=== PATIENT | male | born 1970 | race Caucasian/White ===

== ENCOUNTER 2017-04-20 23:12 | Emergency (ER) | payer OTHER ==
[2017-04-20] MEDS ORDERED: Ketorolac INJ* 30 MG/ML 1 ML VIAL IV ONE (23:42)
[2017-04-20] MEDS ORDERED: NS 0.9% 1000 ML* 1,000 ML IV ONE (23:42)
[2017-04-21 00:25] LABS: Urine Bilirubin Negative (Negative); Urine Glucose Negative (Negative); Urine Nitrite Negative (Negative)
[2017-04-21 00:27] LABS: Hematocrit 42 % (42-52); Hemoglobin 13.9 g/dl (14.0-18.0); Mean Corpuscular HGB Conc 33 g/dl (31-36); Mean Corpuscular Hemoglobin 28 pg (27-31); Mean Corpuscular Volume 85 fL (80-94); Mean Platelet Volume 10 um3 (7.4-10.4); Red Blood Count 4.91 10^6/ul (4.0-5.4); Red Cell Distribution Width 14 % (10.5-15); White Blood Count 11.7 10^3/ul (3.5-10.8)
[2017-04-21 00:35] LABS: Albumin 4.2 g/dL (3.2-5.2); BUN/Creatinine Ratio 27.7 (8-20); Calcium 9.3 mg/dL (8.6-10.3); EGFR African American 129.4 (>60); EGFR Non-African American 100.6 (>60); Globulin 2.6 g/dL (2-4); Total Bilirubin 0.4 mg/dL (0.2-1.0); Total Protein 6.8 g/dL (6.4-8.9)
--- NOTE | 2017-04-21 00:52 | ED ---
I, Oh,Sokaleb, scribed for Garry Hendrickson MD on 04/20/17 at 2343 . Headache - HPI Summary HPI Summary: This 46 y/o male presents to ED for gradually worsening HUTCHISON since 3 hours ago. Pain radiates from occipital up to "rest of my head". Positive photophobia and neck pain. Negative fever or n/v. Pt has not taken any meds to control his pain. PMHx includes diverticulitis. Allergies information involving Cipro and Sulfa abx is reviewed and confirmed with pt. - History Of Current Complaint Chief Complaint: EDHeadache Stated Complaint: HEADACHE/NECK SPASMS Time Seen by Provider: 04/20/17 23:37 Hx Obtained From: Patient, Medical Records Onset/Duration: Gradual Onset Timing: Constant Character: Dull Location of Headache: Occipital - radiating up to rest of his skull Aggravating Factor: Bright Lights Allevating Factors: Nothing Associated Signs And Symptoms: Negative - Allergies/Home Medications Allergies/Adverse Reactions: Allergies Allergy/AdvReac Type Severity Reaction Status Date / Time Ciprofloxacin [From Cipro] Allergy Unknown Verified 04/20/17 23:17 Reaction Details Sulfa Antibiotics Allergy Hives Verified 04/20/17 23:17 PMH/Surg Hx/FS Hx/Imm Hx Endocrine/Hematology History: Denies: Hx Diabetes GI History: Reports: Other GI Disorders - diverticulitis Infectious Disease History: No Infectious Disease History: Denies: Traveled Outside the [place] in Last 30 Days - Family History Known Family History: Positive: Hypertension - Social History Alcohol Use: None Hx Substance Use: No Substance Use Type: Reports: None Review of Systems Negative: Fever Negative: Vomiting, Nausea Positive: Other - neck pain Positive: Headache All Other Systems Reviewed And Are Negative: Yes Physical Exam Triage Information Reviewed: Yes Vital Signs On Initial Exam: Initial Vitals Temp Pulse Resp BP Pulse Ox 97.0 F 74 16 169/118 96 04/20/17 23:18 04/20/17 23:18 04/20/17 23:18 04/20/17 23:18 04/20/17 23:18 Vital Signs Reviewed: Yes Appearance: Positive: Well-Appearing, Pain Distress - mild discomfort Skin: Positive: Warm Head/Face: Positive: Normal Head/Face Inspection. Negative: Temporal Artery Tenderness Eyes: Positive: EOMI, SINDHU, Conjunctiva Clear ENT: Positive: Hearing grossly normal Neck: Positive: Supple, Nontender Respiratory/Lung Sounds: Positive: Clear to Auscultation, Breath Sounds Present Cardiovascular: Positive: RRR Abdomen Description: Positive: Nontender, Soft Bowel Sounds: Positive: Present Neurological: Positive: Sensory/Motor Intact, Alert, Oriented to Person Place, Time, Normal Gait Psychiatric: Positive: Affect/Mood Appropriate Diagnostics - Vital Signs Vital Signs Temp Pulse Resp BP Pulse Ox 04/20/17 23:20 97 F 74 16 169/118 96 04/20/17 23:18 97.0 F 74 16 169/118 96 - Laboratory Lab Results: Lab Results 04/21/17 04/21/17 04/21/17 Range/Units 00:01 00:01 00:01 WBC 11.7 H (3.5-10.8) 10^3/ul RBC 4.91 (4.0-5.4) 10^6/ul Hgb 13.9 L (14.0-18.0) g/dl Hct 42 (42-52) % MCV 85 (80-94) fL MCH 28 (27-31) pg MCHC 33 (31-36) g/dl RDW 14 (10.5-15) % Plt Count 249 (150-450) 10^3/ul MPV 10 (7.4-10.4) um3 Neut % (Auto) 68.9 (38-83) % Lymph % (Auto) 21.4 L (25-47) % [place] % (Auto) 7.4 (1-9) % Eos % (Auto) 1.6 (0-6) % Baso % (Auto) 0.7 (0-2) % Absolute Neuts (auto) 8.1 H (1.5-7.7) 10^3/ul Absolute Lymphs (auto) 2.5 (1.0-4.8) 10^3/ul Absolute Monos (auto) 0.9 H (0-0.8) 10^3/ul Absolute Eos (auto) 0.2 (0-0.6) 10^3/ul Absolute Basos (auto) 0.1 (0-0.2) 10^3/ul Absolute Nucleated RBC 0 10^3/ul Nucleated RBC % 0 Carbon Monoxide Screen <3.5 (<3.5) % Sodium 139 (133-145) mmol/L Potassium 4.0 (3.5-5.0) mmol/L Chloride 105 (101-111) mmol/L Carbon Dioxide 25 (22-32) mmol/L Anion Gap 9 (2-11) mmol/L BUN 23 (6-24) mg/dL Creatinine 0.83 (0.67-1.17) mg/dL Est GFR ( Amer) 129.4 (>60) Est GFR (Non-Af Amer) 100.6 (>60) BUN/Creatinine Ratio 27.7 H (8-20) Glucose 116 H (70-100) mg/dL Calcium 9.3 (8.6-10.3) mg/dL Total Bilirubin 0.40 (0.2-1.0) mg/dL AST 18 (13-39) U/L ALT 21 (7-52) U/L Alkaline Phosphatase 59 (34-104) U/L Total Protein 6.8 (6.4-8.9) g/dL Albumin 4.2 (3.2-5.2) g/dL Globulin 2.6 (2-4) g/dL Albumin/Globulin Ratio 1.6 (1-3) Urine Color Urine Appearance Urine pH (5-9) Ur Specific [place] (1.010-1.030) Urine Protein (Negative) Urine Ketones (Negative) Urine Blood (Negative) Urine Nitrate (Negative) Urine Bilirubin (Negative) Urine Urobilinogen (Negative) Ur Leukocyte Esterase (Negative) Urine Glucose (Negative) 04/21/17 Range/Units 00:11 WBC (3.5-10.8) 10^3/ul RBC (4.0-5.4) 10^6/ul Hgb (14.0-18.0) g/dl Hct (42-52) % MCV (80-94) fL MCH (27-31) pg MCHC (31-36) g/dl RDW (10.5-15) % Plt Count (150-450) 10^3/ul MPV (7.4-10.4) um3 Neut % (Auto) (38-83) % Lymph % (Auto) (25-47) % [place] % (Auto) (1-9) % Eos % (Auto) (0-6) % Baso % (Auto) (0-2) % Absolute Neuts (auto) (1.5-7.7) 10^3/ul Absolute Lymphs (auto) (1.0-4.8) 10^3/ul Absolute Monos (auto) (0-0.8) 10^3/ul Absolute Eos (auto) (0-0.6) 10^3/ul Absolute Basos (auto) (0-0.2) 10^3/ul Absolute Nucleated RBC 10^3/ul Nucleated RBC % Carbon Monoxide Screen (<3.5) % Sodium (133-145) mmol/L Potassium (3.5-5.0) mmol/L Chloride (101-111) mmol/L Carbon Dioxide (22-32) mmol/L Anion Gap (2-11) mmol/L BUN (6-24) mg/dL Creatinine (0.67-1.17) mg/dL Est GFR ( Amer) (>60) Est GFR (Non-Af Amer) (>60) BUN/Creatinine Ratio (8-20) Glucose (70-100) mg/dL Calcium (8.6-10.3) mg/dL Total Bilirubin (0.2-1.0) mg/dL AST (13-39) U/L ALT (7-52) U/L Alkaline Phosphatase (34-104) U/L Total Protein (6.4-8.9) g/dL Albumin (3.2-5.2) g/dL Globulin (2-4) g/dL Albumin/Globulin Ratio (1-3) Urine Color Straw Urine Appearance Clear Urine pH 6.0 (5-9) Ur Specific [place] 1.012 (1.010-1.030) Urine Protein Negative (Negative) Urine Ketones Negative (Negative) Urine Blood Negative (Negative) Urine Nitrate Negative (Negative) Urine Bilirubin Negative (Negative) Urine Urobilinogen Negative (Negative) Ur Leukocyte Esterase Negative (Negative) Urine Glucose Negative (Negative) Result Diagrams: 04/21/17 00:01 04/21/17 00:01 Lab Statement: Any lab studies that have been ordered have been reviewed, and results considered in the medical decision making process. Re-Evaluation - Re-Evaluation First Eval Change: Improved Headache Course/Dx - Diagnoses Provider Diagnoses: Headache Discharge - Discharge Plan Condition: Improved Disposition: HOME Patient Education Materials: General Headache (ED) Referrals: [facility] – [place], [place] PH[facility]IAN REFERRAL [Outside] - 2 Days The documentation as recorded by the Nestor boudreaux Soohyun accurately reflects the service I personally performed and the decisions made by me, Garry Hendrickson MD.
[2017-04-21 01:18] VITALS: BP 153/79
== END 2017-04-21 01:18 | disposition home or self-care (01) ==
LOC: ED 23:12
DX: R51 Headache (principal); M54.2 Cervicalgia
CPT/HCPCS: 36415; 80053; 81003; 82375; 85025; 96374; 99282; J1885